=== PATIENT | female | born 1995 | race Two or more races ===

== ENCOUNTER 2021-10-25 15:19 | Emergency (ER) | payer MEDICAID, OTHER ==
[~2021-10-25] VITALS: Ht 172.7 cm; Wt 72.6 kg
[2021-10-25] MEDS ORDERED: ACETAMINOPHEN 500 MG TAB PO ONE ×2 (18:00→21:00)
[2021-10-25 20:41] VITALS: BP 101/99
[2021-10-25 21:22] LABS: Urine Bacteria FEW /hpf (None Seen); Urine Blood Negative /uL (Negative); Urine Specific Gravity 1.014 (1.001-1.035); Urine WBC 1 /hpf (0 - 5)
== END 2021-10-25 23:18 | disposition home or self-care (01) ==
LOC: ER 15:19
DX: J06.9 Acute upper respiratory infection, unspecified (principal); R50.9 Fever, unspecified; R53.83 Other fatigue; J02.9 Acute pharyngitis, unspecified; M79.10 Myalgia, unspecified site; Z86.2 Personal history of diseases of the blood and blood-forming organs and certain disorders involving the immune mechanism; Z20.822 Contact with and (suspected) exposure to COVID-19
CPT/HCPCS: 36415; 81001; 87426